=== PATIENT | female | born 1985 | race Hispanic/Latino ===

== ENCOUNTER 2018-08-01 08:32 | Outpatient (CLI) | payer OTHER ==
--- NOTE | 2018-08-01 11:47 | ULT ---
ULTRASOUND OBSTETRICAL COMPLETE: Date: 08/01/18 HISTORY: Z34.82, encounter for supervision of other normal , second trimester for 32-year-old f taina. FINDINGS: number: Man. lie: Transverse, with head to maternal left. Maternal cervix: 4.5 cm in length, and closed. Placenta: Anterior. No placenta previa. Amniotic fluid volume: ERASMO = 12 cm. heart rate: 140 bpm. The following anatomy is visualized, with no evidence of anomalies: Head, lateral ventricles, cerebellum, nose and lips, spine, upper limbs, lower limbs, four chamber he art, umbilical cord, cord insertion, stomach, kidneys, and bladder. biometry: Head circumference (HC): 16.1 cm 19w 0d Biparietal diameter (BPD): 4.5 cm 19w 5d Abdominal circumference (AC): 13.8 cm 19w 2d Femur length (FL): 3.0 cm 19w 2d Average ultrasound age (AUA): 19w 3d Estimated date of delivery (IRASEMA): 12/23/2018. Last menstrual period (LMP): 03/22/2018. Gestational age by LMP: 18w 6d Estimated weight (EFW): 280 g +/- 41 g. IMPRESSION: 1. Live second trimester intrauterine gestation. 2. Estimated gestational age of 19 weeks, 3 days. 3. Transverse lie. 4. No anatomical abnormalities. jn [] POS: [facility]
== END 2018-08-01 08:33 | disposition home or self-care (01) ==
LOC: BICULT 08:32
PROVIDERS: ATTEND Family Medicine
DX: Z34.82 Encounter for supervision of other normal pregnancy, second trimester (principal); Z3A.19 19 weeks gestation of pregnancy; O32.2XX0 Maternal care for transverse and oblique lie, not applicable or unspecified
CPT/HCPCS: 76805

== ENCOUNTER 2018-11-21 10:00 | Outpatient (CLI) | payer OTHER ==
--- NOTE | 2018-11-21 13:51 | ULT ---
OB ULTRASOUND: HISTORY: Diet-controlled gestational diabetes mellitus in third trimester. FINDINGS: A single live intrauterine gestation is seen with measurements corresponding to an estimated gestatio nal age of 35 weeks 4 days and IRASEMA at 12/22/2018. The estimated weight measures 2851 gm or 6 po unds and 5 ounces. measurements are as follows: BPD 8.95 cm, 36 weeks 2 days HC 31.15 cm, 34 weeks 6 days AC 33.75 cm, 37 weeks 5 days FL 6.43 cm, 33 weeks 1 day heart rate measures 125 b.p.m. AFT measures 14.5 cm. Placenta is anteriorly located without e vidence of placenta previa. Three-vessel cord and 4-chamber heart are visualized. The remainder of the parts are not satis factorily visualized. Umbilical artery Doppler evaluation demonstrates S/D values between 2.18 and 2.5. IMPRESSION: Single live intrauterine of 35 weeks 4 days estimated gestational age and estimated date of delivery at 12/22/2018. POS: [facility]
== END 2018-11-21 10:01 | disposition home or self-care (01) ==
LOC: ULT 10:00
PROVIDERS: ATTEND Family Medicine
DX: O24.410 Gestational diabetes mellitus in pregnancy, diet controlled (principal); Z3A.35 35 weeks gestation of pregnancy
CPT/HCPCS: 76700; 76805

== ENCOUNTER 2018-12-11 21:23 | Inpatient (IN) | payer OTHER, SELFPAY ==
[2018-12-11] MEDS ORDERED: Misoprostol 200 MCG TAB PR PRN (22:06)
[2018-12-11] MEDS ORDERED: Diphenoxylate HCl/Atropine Tablet PO PRN (22:06)
[2018-12-11] MEDS ORDERED: Promethazine HCl 25 MG/ML VIAL IM PRN (22:06)
[2018-12-11] MEDS ORDERED: Lidocaine 1% (PF) 30 ML VIAL SC PRN (22:06)
[2018-12-11] MEDS ORDERED: Methylergonovine 0.2 MG/ML VIAL IM PRN (22:06)
[2018-12-11] MEDS ORDERED: Carboprost 250 MCG/ML AMP IM PRN (22:06)
[2018-12-11] MEDS ORDERED: Ondansetron PF 4 MG/2 ML Vial IVP PRN (22:06)
[2018-12-11] MEDS ORDERED: NS / Oxytocin 40 units/1000ml 1,000 ML IV PRN (22:06)
[2018-12-11] MEDS ORDERED: HYDROcodone/Acetaminophen 5/325 mg Tablet PO PRN (22:06)
[2018-12-11 22:14] VITALS: BMI 30.2
[2018-12-11] MEDS ORDERED: Penicillin G Potassium 5 MILL.UNITS in Sodium Chloride 0.9% 100 ML IVPB SCH (22:15)
[2018-12-11] MEDS ORDERED: NS w/ Oxytocin 10 units 500 ML IV SCH ×2 (22:15)
[2018-12-11] MEDS: Lactated Ringer's 1,000 ML IV SCH (22:40)
[2018-12-11 23:38] LABS: Hemoglobin 11.6 g/dL (12.0-16.0); Mean Corpuscular HGB CONC 31.7 g/dL (32.0-36.0); Mean Corpuscular Hemoglobin 26.3 pg (27.0-31.0); Mean Corpuscular Volume 82.9 fL (78.0-98.0); Platelet Count 263 thou/uL (130-400); RBC Distribution Width 14.2 % (11.5-14.5); White Blood Cell (WBC) Count 7.9 thou/uL (4.8-10.8)
[2018-12-12 00:24] LABS: HBSAg Index 0.29 S/CO (0-0.99); Hep B Surf Ag Non-Reactive S/CO (NonReactive)
[2018-12-12 00:27] LABS: Syphilis Antibody Nonreactive (Nonreactive); Syphilis Antibody Index 0.02 S/CO (<1.00 Non-Reactive)
[2018-12-12 00:34] LABS: Glucose 107 mg/dL (70-105)
[2018-12-12] MEDS: Misoprostol 100 MCG TAB PO SCH ×3 (00:41→06:32)
[2018-12-12] MEDS: Penicillin G 2.5 MILL.units 2.5 MILL.UNITS in Premix Bag 1 BAG IVPB SCH ×4 (02:13→21:00)
[2018-12-12] MEDS: Lactated Ringer's 1,000 ML IV SCH ×2 (04:15→07:50)
[2018-12-12] MEDS: Butorphanol Tartrate 1 MG/ML VIAL SLOW IVP PRN ×2 (07:04→08:15)
--- NOTE | 2018-12-12 07:18 | ULT ---
LIMITED OB ULTRASOUND: Date: 12/11/18 CLINICAL HISTORY: Evaluation of positioning. Active labor. FINDINGS: There is a live intrauterine gestation which is in a cephalic lie. cardiac activity is document ed at 135 beats/minute. About the periphery of the imaged heart, there is suggestion of mild fluid ec hogenicity. IMPRESSION: 1. Cephalic lie is demonstrated on the provided views. 2. Documented cardiac activity. Suggestion of partially imaged pericardial effusion. Correlate clinically and recommend close continued follow-up. Dr. Alford made aware of findings during the imaging portion of the exam. CODE CR.
[2018-12-12] MEDS ORDERED: Fentanyl 4 mcg/Bup 0.1% Cadd 100 ML ONE (08:46)
[2018-12-12] MEDS ORDERED: Lactated Ringer's 500 ML IV PRN (09:19)
[2018-12-12] MEDS ORDERED: Promethazine HCl 25 MG/ML VIAL IM PRN (09:19)
[2018-12-12] MEDS ORDERED: diphenhydrAMINE 50 MG/ML VIAL IVP PRN (09:19)
[2018-12-12] MEDS ORDERED: Eucerin (Mineral Oil/Petrolatum,White) 30 gm Jar TOP PRN (09:19)
[2018-12-12] MEDS ORDERED: Naloxone HCl 0.4 mg/ml Vial IVP PRN ×2 (09:19→09:30)
[2018-12-12] MEDS ORDERED: ePHEDrine/0.9% NaCl/PF SYRINGE 50 mg/10 ml SLOW IVP PRN (09:30)
[2018-12-12] MEDS ORDERED: Fentanyl 4 mcg/Bupivacaine 0.1% Cassette 100 ML EPIDURAL SCH (09:30)
[2018-12-12] MEDS ORDERED: Ondansetron PF 4 MG/2 ML Vial IVP PRN (09:30)
[2018-12-12] MEDS ORDERED: Communication Order-Pharmacy FS SCH ×2 (09:30)
[2018-12-12] MEDS ORDERED: NS / Oxytocin 40 units/1000ml 1,000 ML ONE (10:06)
[2018-12-12] MEDS: Acetaminophen 500 MG TAB PO PRN ×2 (14:42→19:57)
--- NOTE | 2018-12-12 21:10 | PDOC.EVN ---
Event Note - Event Note Event Note: notified pt unable to discharge today. ppd [address] Laguerre. He is aware. I am cancelling discharge orders and transfering to the floor.
[2018-12-12] MEDS ORDERED: Lanolin Ointment 7 GM TUBE TOP PRN (21:37)
[2018-12-12] MEDS ORDERED: Bisacodyl 10 MG SUPP PR PRN (21:37)
[2018-12-12] MEDS ORDERED: Milk Of Magnesia 30 ML UDCUP PO PRN (21:37)
[2018-12-12] MEDS ORDERED: NS / Oxytocin 40 units/1000ml 1,000 ML IV SCH (21:37)
[2018-12-13] MEDS: Acetaminophen 500 MG TAB PO PRN (04:53)
[2018-12-13 07:27] LABS: Hemoglobin 11.3 g/dL (12.0-16.0); Mean Corpuscular HGB CONC 32.1 g/dL (32.0-36.0); Mean Corpuscular Hemoglobin 27.1 pg (27.0-31.0); Mean Corpuscular Volume 84.3 fL (78.0-98.0); Mean Platelet Volume 8.2 fL (7.4-10.4); Platelet Count 239 thou/uL (130-400); RBC Distribution Width 14.4 % (11.5-14.5); Red Blood Cell (RBC) Count 4.16 mill/uL (4.20-5.40); White Blood Cell (WBC) Count 8.6 thou/uL (4.8-10.8)
[2018-12-13] MEDS ORDERED: Ferrous Sulfate 325 MG TAB PO SCH (08:00)
[2018-12-13 08:17] VITALS: BP 103/62; TEMP 98.5
[2018-12-13] MEDS ORDERED: Adacel (T-DAP) 0.5 ML SYRINGE IM ONE (09:00)
[2018-12-13] MEDS ORDERED: Docusate Calcium (SURFAK) 240 MG CAP PO SCH (09:00)
[2018-12-13] MEDS ORDERED: Prenatal Vitamin 1 TAB PO SCH (09:00)
== END 2018-12-13 09:25 | disposition home or self-care (01) | DRG 807 ==
LOC: L&D 21:23 → 3SW 12-12 22:38
PROVIDERS: ADMIT Family Medicine; ATTEND Family Medicine
PROC: 10907ZC Drainage of Amniotic Fluid, Therapeutic from Products of Conception, Via Natural or Artificial Opening (ICD-10-PCS; principal; 2018-12-11)
PROC: 10E0XZZ Delivery of Products of Conception, External Approach (ICD-10-PCS; 2018-12-11)
DX: O69.1XX0 Labor and delivery complicated by cord around neck, with compression, not applicable or unspecified (principal); Z37.0 Single live birth; Z3A.39 39 weeks gestation of pregnancy; O24.420 Gestational diabetes mellitus in childbirth, diet controlled; O76 Abnormality in fetal heart rate and rhythm complicating labor and delivery
CPT/HCPCS: 36415; 36416; 51702; 76815; 82947; 85027; 85460; 86780; 86850; 86900; 86901; 87340; 88307; J0595